=== PATIENT | male | born 1980 | race American Indian/Alaskan Native ===

== ENCOUNTER 2017-02-17 16:04 | Emergency (ER) | payer OTHER ==
[2017-02-17 16:24] VITALS: BP 144/94
--- NOTE | 2017-02-17 16:24 | Emergency Department Report ---
Entered by ANA MONROY, acting as scribe for LESLEY DOWELL NP. Chief Complaint: Urogenital-Male Stated Complaint: BLOOD IN URINE Time Seen by Provider: 02/17/17 16:20 - HPI History of Present Illness: 36 y/o presents with hematuria that started earlier today. Sx include dysuria and penile drainage. Pt notes he has had unprotected sex within the past 2 weeks. - ROS Review of Systems: +dysuria +hematuria +penile drainage - Exam Vital Signs: Vital Signs 02/17/17 16:22 Temperature 98.5 F Pulse Rate 91 H Respiratory 16 Rate Blood Pressure 144/94 O2 Sat by Pulse 100 Oximetry Physical Exam: steady gait, a and o x4 No cva tenderness nick *Male exam not done in [facility] screening note: Focused history and physical exam performed. Due to findings the following was ordered: labs ED Disposition for [facility] Condition: Stable This documentation as recorded by the scribePORFIRIO RYAN,accurately reflects the service I personally performed and the decisions made by ,LESLEY DOWELL , [place].
[2017-02-17 17:12] LABS: Bilirubin,Urine NEG (Negative); Blood,Urine LG (Negative); Ketones,Urine NEG (Negative); Leukocyte Esterase,Urine LG (Negative); Nitrite,Urine NEG (Negative)
[2017-02-17 17:31] LABS: RBC,Urine > 182.0 /HPF (0.0-6.0); WBC,Urine > 182.0 /HPF (0.0-6.0)
[2017-02-17] MEDS ORDERED: ROCEPHIN IM ONE (17:41)
[2017-02-17] MEDS ORDERED: XYLOCAINE 1% MPF 5 mL INFILTRATI ONE (17:41)
--- NOTE | 2017-02-17 19:05 | Emergency Department Report ---
Entered by ANA MONROY, acting as scribe for LESLEY DOWELL NP. ED Male HPI - General Chief complaint: Urogenital-Male Stated complaint: BLOOD IN URINE Time Seen by Provider: 02/17/17 16:20 Source: patient Mode of arrival: Ambulatory Limitations: No Limitations - History of Present Illness Initial comments: 36 y/o presents with constant, burning, moderate dysuria and penile discharge that started earlier 2 weeks ago. PT states today he noticed hematuria. Pain is aggravated by urination, alleviated by nothing. Sx include hematuria and penile drainage. Pt notes he has had unprotected sex within the past 2 weeks. Pt states prior to onset, he had unprotected sex with a female with a uti MD Complaint: penile discharge, dysuria -: This morning (hematuria ) Location: penis Radiation: none Severity: moderate Severity scale (0 -10): 6 Quality: burning Consistency: constant Improves with: none Worsens with: urination new sexual partner (unprotected sex within last 2 weeks) discharge, blood in urine, dysuria. denies: swelling, mass, rash, urinary retention, fever, nausea/vomiting, incontinence - Related Data Sexually active: Yes (unprotected sex within last 2 weeks) Previous Rx's Medication Instructions Recorded Last Taken Type Doxycycline [Vibramycin CAP] 100 mg PO Q12HR #14 capsule 02/17/17 Unknown Rx Allergies Allergy/AdvReac Type Severity Reaction Status Date / Time No Known Allergies Allergy Verified 06/08/14 13:46 ED Review of Systems Comment: All other systems reviewed and negative Constitutional: denies: chills, fever ENT: denies: ear pain, throat pain Respiratory: denies: cough, shortness of breath Cardiovascular: denies: chest pain Gastrointestinal: denies: abdominal pain, nausea, vomiting Genitourinary: dysuria, hematuria, discharge Musculoskeletal: denies: back pain Skin: denies: rash Neurological: denies: headache, numbness ED Past Medical Hx - Past Medical History Previous Medical History?: No - Surgical History Past Surgical History?: Yes Additional Surgical History: right arm - Social History Smoking Status: Current Every Day Smoker Substance Use Type: Alcohol - Medications Home Medications: Home Medications Medication Instructions Recorded Confirmed Last Taken Type Doxycycline [Vibramycin CAP] 100 mg PO Q12HR #14 capsule 02/17/17 Unknown Rx ED Physical Exam - General Limitations: No Limitations General appearance: alert, in no apparent distress - Head Head exam: Present: atraumatic, normocephalic, normal inspection - Eye Eye exam: Present: normal appearance, PERRL, EOMI. Absent: conjunctival injection - ENT ENT exam: Present: normal exam, mucous membranes moist, normal external ear exam - Neck Neck exam: Present: normal inspection, full ROM. Absent: tenderness, meningismus, lymphadenopathy, thyromegaly - Respiratory Respiratory exam: Present: normal lung sounds bilaterally. Absent: respiratory distress, wheezes, rales, rhonchi, stridor - Cardiovascular Cardiovascular Exam: Present: regular rate, normal rhythm, normal heart sounds. Absent: bradycardia, tachycardia, irregular rhythm, systolic murmur, rubs, gallop - GI/Abdominal GI/Abdominal exam: Present: soft. Absent: distended, tenderness, guarding, rebound, rigid, diminished bowel sounds - Extremities Exam Extremities exam: Present: normal inspection, full ROM, normal capillary refill. Absent: tenderness, pedal edema, joint swelling, calf tenderness - Back Exam Back exam: Present: normal inspection, full ROM. Absent: tenderness, CVA tenderness (R), CVA tenderness (L), muscle spasm, paraspinal tenderness, vertebral tenderness - Neurological Exam Neurological exam: Present: alert, oriented X3, CN II-XII intact, normal gait, reflexes normal. Absent: altered, abnormal gait, motor sensory deficit - Psychiatric Psychiatric exam: Present: normal affect, normal mood - Skin Skin exam: Present: warm, dry, intact, normal color. Absent: rash ED Course Vital Signs 02/17/17 16:22 Temperature 98.5 F Pulse Rate 91 H Respiratory 16 Rate Blood Pressure 144/94 O2 Sat by Pulse 100 Oximetry - Reevaluation(s) Reevaluation #1: 02/17/17 18:12 PT aware of dx and plan of care. PT empirically treated for gc while in ED. PT aware he will need to abstain from sex. PT aware his sexual partners will need testing and treatment. PT aware he will need full panel STD testing. PT verbalizes understanding. - Pulse Oximetry Interpretation Digit-Finger Initial Pulse Oximetry Readin Actions Taken: none ED Medical Decision Making - Lab Data Labs 02/17/17 16:36 Urine Color Yellow Urine Turbidity Cloudy Urine pH 6.0 Ur Specific [place] 1.019 Urine Protein 30 mg/dl Urine Glucose (UA) Neg Urine Ketones Neg Urine Blood Lg Urine Nitrite Neg Urine Bilirubin Neg Urine Urobilinogen 2.0 Ur Leukocyte Esterase Lg Urine WBC (Auto) > 182.0 H Urine RBC (Auto) > 182.0 U Epithel Cells (Auto) 1.0 - Differential Diagnosis std, uti Critical Care Time: No ED Disposition Clinical Impression: Urethritis, Penile discharge, Risky sexual behavior Disposition: TO HOME OR SELFCARE Is pt being admited?: No Does the pt Need Aspirin: No Condition: Stable Instructions: Sexually Transmitted Diseases (ED), Safe Sex (ED), Nonspecific Urethritis in Men (ED) Additional Instructions: No sex x 2 weeks Follow up with medical records for copies of your cultures Follow up with PCP or health dept for full panel STD testing No sex for the next 2 weeks your sexual partner(s) will need testing/ treatment before you can resume sexual intercourse finish all doxy avoid direct sun exposure. Follow up with pcp in 3-5 days and have your bp rechecked on follow up Prescriptions: Doxycycline [Vibramycin CAP] 100 mg PO Q12HR #14 capsule Referrals: PRIMARY CARE, [Primary Care Provider] - 3-5 Days GARRET MULLER MD [Referring] - 3-5 Days [facility] [Outside] - 3-5 Days [facility] [Outside] - 3-5 Days Forms: STI Treatment and Prevention, Work/School Release Form(ED) Time of Disposition: 18:17 This documentation as recorded by the PORFIRIO roberson RYAN,accurately reflects the service I personally performed and the decisions made by ,LESLEY DOWELL NP.
== END 2017-02-17 19:09 | disposition home or self-care (01) ==
LOC: ED 16:04
DX: N34.2 Other urethritis (principal); R36.9 Urethral discharge, unspecified; F17.200 Nicotine dependence, unspecified, uncomplicated
CPT/HCPCS: 81001; 87591; 96372; 99283; J0696